=== PATIENT | male | born 1985 | race Hispanic/Latino ===

== ENCOUNTER 2020-11-10 12:05 | Emergency (ER) | payer OTHER ==
[~2020-11-10] VITALS: Ht 177.8 cm; Wt 136.1 kg
[2020-11-10 12:07] VITALS: BP 135/83
[2020-11-10] MEDS ORDERED: FLUORESCEIN SODIUM 1 STRIP STRIP OP STA (14:24)
[2020-11-10] MEDS ORDERED: TETRACAINE HCL 0.5% 4 ML OPHTH SOLN OP STA (14:24)
[2020-11-10] MEDS ORDERED: OFLOXACIN 0.3% 5ML DROPS OD STA (15:03)
[2020-11-10] MEDS ORDERED: CIPROFLOXACIN HCL 0.3% 2.5ML DROPS OD STA (15:30)
[2020-11-10] MEDS ORDERED: OFLO35OS OD (15:33)
[2020-11-10 15:44] VITALS: BP 169/91
== END 2020-11-10 15:46 | disposition home or self-care (01) ==
LOC: EDH 12:49
DX: S05.02XA Injury of conjunctiva and corneal abrasion without foreign body, left eye, initial encounter (principal); Z98.890 Other specified postprocedural states; W22.8XXA Striking against or struck by other objects, initial encounter; Y93.89 Activity, other specified; Y92.89 Other specified places as the place of occurrence of the external cause; Y99.8 Other external cause status